=== PATIENT | male | born 1940 | race Caucasian/White ===

== ENCOUNTER 2022-03-21 15:30 | Inpatient (IN) | payer OTHER, MEDICAID ==
[~2022-03-21] VITALS: Ht 172.7 cm; Wt 73.5 kg
[2022-03-21 15:30] VITALS: BP 97/77
--- NOTE | 2022-03-21 15:31 | NUR ---
Patient BIBA to bed 9.
[2022-03-21] MEDS ORDERED: NACL 0.9% 500 ML IV SCH (15:45)
[2022-03-21] MEDS ORDERED: SODIUM PHOSPHATE 118 ML ENEM RC ONE (15:50)
[2022-03-21 16:29] LABS: BASOPHILS % (AUTO) 0.5 % (0.0-2.0); EOSINOPHILS # (AUTO) 0.1 K/uL (0-0.4); EOSINOPHILS % (AUTO) 6.4 % (0.0-4.0); HEMATOCRIT 36.5 % (36-52); HEMOGLOBIN 12.4 g/dL (12.0-18.0); LYMPHOCYTES # (AUTO) 0.7 K/uL (2.0-11.5); LYMPHOCYTES % (AUTO) 36.5 % (20.5-51.1); MEAN CORPUSCULAR HEMOGLOBIN 32 pg (27-31); MEAN CORPUSCULAR HGB CONC 34 g/dL (33-37); MEAN CORPUSCULAR VOLUME 94.8 fL (80-94); MONOCYTES # (AUTO) 0.2 K/uL (0.8-1.0); MONOCYTES % (AUTO) 9.4 % (1.7-9.3); NEUTROPHILS # (AUTO) 0.9 K/uL (1.8-7.7); NEUTROPHILS % (AUTO) 47.2 % (42.2-75.2); PLATELET COUNT (AUTO) 98 K/uL (140-450); RED BLOOD CELL COUNT(AUTO) 3.85 MIL/uL (4.20-6.10); RED CELL DISTRIBUTION WIDTH 16.5 % (11.6-13.7)
[2022-03-21 16:31] LABS: WHITE BLOOD COUNT (AUTO) 1.9 K/uL (4.8-10.8)
[2022-03-21] MEDS ORDERED: CEFEPIME 2,000 MG in DEXTROSE 5% 100 ML IV ONE (16:40)
[2022-03-21 16:55] LABS: PROTHROMBIN TIME 12.1 secs (10.8-13.4)
[2022-03-21] MEDS ORDERED: CEFEPIME 2,000 MG VIAL IV ONE (16:56)
[2022-03-21 16:58] LABS: ALBUMIN 2.2 g/dL (3.4-5.0); ANION GAP 11.4 (8-16); ASPARTATE AMINOTRANSFERASE 33 U/L (15-37); CARBON DIOXIDE 24.6 mmol/L (21-32); CHLORIDE 110 mmol/L (98-107); CREATININE 0.6 mg/dL (0.6-1.3); GLUCOSE 128 mg/dL (74-106); SODIUM SERUM 142 mmol/L (136-145); UREA NITROGEN, BLOOD 19 mg/dL (7-18)
[2022-03-21] MEDS ORDERED: ACETAMINOPHEN 325 MG TAB PO PRN (17:05)
[2022-03-21] MEDS ORDERED: ONDANSETRON 4 MG/2 ML VIAL IVP PRN (17:05)
[2022-03-21] MEDS ORDERED: MAG SULF 2000 MG/WATER PREMIX 50 ML IV PRN (17:05)
[2022-03-21] MEDS ORDERED: ZOLPIDEM 10 MG TAB PO PRN (17:05)
[2022-03-21] MEDS ORDERED: POTASSIUM CHLORIDE 10 MEQ TABER PO PRN (17:05)
[2022-03-21] MEDS ORDERED: INSULIN LISPRO SLIDING SCALE 100 UNITS/ML VIAL SUBQ PRN (17:05)
[2022-03-21] MEDS ORDERED: DEXTROSE 50% 50 ML SYR IVP PRN (17:05)
[2022-03-21] MEDS ORDERED: DOCUSATE SODIUM 100 MG GELCAP PO PRN (17:05)
[2022-03-21] MEDS ORDERED: LORazepam 2 MG/ML VIAL IVP PRN (17:05)
[2022-03-21] MEDS ORDERED: MORPHINE SULFATE 2 MG/ML SYR IVP PRN (17:05)
[2022-03-21] MEDS ORDERED: NACL 0.9% 1,000 ML IV ONE (17:10)
--- NOTE | 2022-03-21 17:20 | NUR ---
# 14 FR Urinary catheter inserted utilizing sterile technique. Immediate return of 50 ml CLOUDY GRAY urine noted. Urine sample collected and sent to lab. Pt tolerated procedure WELL.
[2022-03-21 17:51] LABS: APPEARANCE,URINE CLOUDY (CLEAR); COLOR,URINE AMBER (YELLOW)
[2022-03-21 17:52] LABS: BILIRUBIN,URINE NEGATIVE (NEGATIVE); BLOOD, URINE TRACE (NEGATIVE); LEUKOCYTE ESTERASE ,URINE 2+ (NEGATIVE); NITRITE, URINE POSITIVE (NEGATIVE); UGLUCOSE NEGATIVE (NEGATIVE)
[2022-03-21 17:53] LABS: RBC,URINE 0-5 /HPF (0-5); WBC,URINE TOO MANY TO COUNT /HPF (0-5)
[2022-03-21] MEDS ORDERED: DONE5TAB6 PO (18:22)
[2022-03-21] MEDS ORDERED: MULT-1640 PO (18:32)
[2022-03-21] MEDS ORDERED: ASCO500T95 PO (18:32)
[2022-03-21] MEDS ORDERED: ACET-8386 PO (18:32)
[2022-03-21] MEDS ORDERED: NITR0.4T2 SL (18:32)
[2022-03-21] MEDS ORDERED: DOCU-299 PO (18:32)
[2022-03-21] MEDS ORDERED: CHOL100013 PO (18:32)
--- NOTE | 2022-03-21 19:04 | NUR ---
RAMONEA FROM [facility] C/O ABNORMAL LABS 2.1 WBC (03/16/22) NKA PMH: DEMENTIA, HTN, DM, CHF, HDL, TIA, ANEMIA
--- NOTE | 2022-03-21 19:20 | NUR ---
Pt report given to MCGOVERN RN. Transfer of care at this time.
[2022-03-21 20:00] VITALS: BP 135/78
--- NOTE | 2022-03-21 20:35 | NUR ---
RECEIVED PT FROM ER NURSE FOR CONTINUITY OF CARE,.PT IS ALERT WITH CONFUSION. PIV ON RAC 20 G INTACT AND PATENT. SKIN IS INTACT, VS WNL NO DISTRESS NOTED
[2022-03-21] MEDS: BLOOD GLUCOSE MONITORING 1 DEV DEV FS SCH (21:00)
--- NOTE | 2022-03-21 23:29 | NUR ---
PATIENT ADMITED TO FLOOR ROOM 121 B STABLE VITALS SIGNS IN NORMAL LIMITS REPORTED AND ENDORSE OF CARE GAVE TO STEPHANIE BECERRA
[2022-03-22] MEDS ORDERED: PIPERACILLIN/TAZOBACTAM 3.375 GM VIAL IV ONE ×2 (00:25→05:06)
[2022-03-22] MEDS: PIPERACILLIN/TAZOBACTAM 3.375 GM in DEXTROSE 5% 50 ML IV SCH ×4 (00:51→18:05)
--- NOTE | 2022-03-22 02:00 | NUR ---
PATIENT ASLEEP, NO S/SX OF DISTRESS NOTED
[2022-03-22 04:00] VITALS: BP 133/69
[2022-03-22 05:52] LABS: BASOPHILS % (AUTO) 0.5 % (0.0-2.0); EOSINOPHILS # (AUTO) 0.1 K/uL (0-0.4); EOSINOPHILS % (AUTO) 6.2 % (0.0-4.0); HEMATOCRIT 33.4 % (36-52); HEMOGLOBIN 11.7 g/dL (12.0-18.0); LYMPHOCYTES # (AUTO) 0.8 K/uL (2.0-11.5); LYMPHOCYTES % (AUTO) 40.4 % (20.5-51.1); MEAN CORPUSCULAR HEMOGLOBIN 33 pg (27-31); MEAN CORPUSCULAR HGB CONC 35 g/dL (33-37); MEAN CORPUSCULAR VOLUME 93.5 fL (80-94); MONOCYTES # (AUTO) 0.2 K/uL (0.8-1.0); MONOCYTES % (AUTO) 10.4 % (1.7-9.3); NEUTROPHILS # (AUTO) 0.9 K/uL (1.8-7.7); NEUTROPHILS % (AUTO) 42.5 % (42.2-75.2); PLATELET COUNT (AUTO) 84 K/uL (140-450); RED BLOOD CELL COUNT(AUTO) 3.58 MIL/uL (4.20-6.10); RED CELL DISTRIBUTION WIDTH 16.7 % (11.6-13.7)
[2022-03-22 06:20] LABS: ANION GAP 12.3 (8-16); CARBON DIOXIDE 23.4 mmol/L (21-32); CHLORIDE 111 mmol/L (98-107); CREATININE 0.5 mg/dL (0.6-1.3); GLUCOSE 75 mg/dL (74-106); POTASSIUM 3.7 mmol/L (3.5-5.1); SODIUM SERUM 143 mmol/L (136-145)
[2022-03-22] MEDS: BLOOD GLUCOSE MONITORING 1 DEV DEV FS SCH ×4 (06:28→21:07)
[2022-03-22 06:30] LABS: UREA NITROGEN, BLOOD 17 mg/dL (7-18)
--- NOTE | 2022-03-22 07:20 | NUR ---
ENDORSED PT TO AM NURSE. PT IS STABLE
[2022-03-22 08:00] VITALS: BP 154/75
--- NOTE | 2022-03-22 10:31 | NUR ---
PATIENT HAS BEEN SCREENED AND CATEGORIZED MODERATE NUTRITION RISK. PATIENT WILL BE SEEN WITHIN 3-5 DAYS OF ADMISSION. 03/21/22-03/26/[address] REVIEWED BY CEE BARN[address] RD
[2022-03-22] MEDS: POLYETHYLENE GLYCOL 17 GM/PKT PO SCH (11:05)
[2022-03-22 16:00] VITALS: BP 154/75
[2022-03-22] MEDS: DONEPEZIL 10 MG TAB PO SCH (17:00)
--- NOTE | 2022-03-22 19:30 | NUR ---
RECEIVED PT FROM AM NURSE FOR CONTINUITY OF CARE.PT IS STABLE
[2022-03-22 20:00] VITALS: BP 131/69
[2022-03-22] MEDS: DOCUSATE SODIUM 100 MG GELCAP PO SCH (21:05)
[2022-03-22] MEDS: ASCORBIC ACID 500 MG TAB PO SCH (21:06)
[2022-03-23] MEDS: PIPERACILLIN/TAZOBACTAM 3.375 GM in DEXTROSE 5% 50 ML IV SCH ×4 (00:37→18:27)
--- NOTE | 2022-03-23 01:00 | NUR ---
PATIENT ASLEEP, NO S/SX OF DISTRESS NOTED
[2022-03-23 04:00] VITALS: BP 136/70
[2022-03-23 06:16] LABS: CARBON DIOXIDE 21.7 mmol/L (21-32); CHLORIDE 112 mmol/L (98-107); CREATININE 0.7 mg/dL (0.6-1.3); GLUCOSE 75 mg/dL (74-106); POTASSIUM 3.7 mmol/L (3.5-5.1); SODIUM SERUM 142 mmol/L (136-145); UREA NITROGEN, BLOOD 14 mg/dL (7-18)
[2022-03-23 06:26] LABS: BASOPHILS % (AUTO) 0.5 % (0.0-2.0); EOSINOPHILS # (AUTO) 0.1 K/uL (0-0.4); EOSINOPHILS % (AUTO) 4.3 % (0.0-4.0); HEMATOCRIT 32.8 % (36-52); HEMOGLOBIN 11.4 g/dL (12.0-18.0); LYMPHOCYTES # (AUTO) 0.7 K/uL (2.0-11.5); MEAN CORPUSCULAR HEMOGLOBIN 32 pg (27-31); MEAN CORPUSCULAR HGB CONC 35 g/dL (33-37); MEAN CORPUSCULAR VOLUME 93.8 fL (80-94); MONOCYTES # (AUTO) 0.2 K/uL (0.8-1.0); MONOCYTES % (AUTO) 9.2 % (1.7-9.3); NEUTROPHILS # (AUTO) 1.5 K/uL (1.8-7.7); PLATELET COUNT (AUTO) 89 K/uL (140-450); RED CELL DISTRIBUTION WIDTH 16.2 % (11.6-13.7); WHITE BLOOD COUNT (AUTO) 2.6 K/uL (4.8-10.8)
[2022-03-23] MEDS: BLOOD GLUCOSE MONITORING 1 DEV DEV FS SCH ×4 (06:39→20:19)
--- NOTE | 2022-03-23 07:30 | NUR ---
RECEIVED REPORT FROM NIGHTSHIFT NURSE SALAZAR FOR CONTINUITY OF CARE. PT IS IN STABLE CONDITION, AND CURRENTLY SLEEPING. PT IS A/OX2, AND BREATHING IS EVEN, REGULAR AND UNLABORED ON ROOM AIR. PT IS INCONTINENT OF THE BOWELS AND BLADDER, AND IS BEDBOUND. NO SKIN ISSUES REPORTED. PT SHOWS NO SIGNS OF PAIN OR DISTRESS AT THIS TIME.
[2022-03-23 08:00] VITALS: BP 139/72
[2022-03-23] MEDS: POLYETHYLENE GLYCOL 17 GM/PKT PO SCH (09:16)
[2022-03-23] MEDS: DOCUSATE SODIUM 100 MG GELCAP PO SCH ×2 (09:16→20:05)
[2022-03-23] MEDS: ASCORBIC ACID 500 MG TAB PO SCH ×2 (09:16→20:05)
--- NOTE | 2022-03-23 11:35 | NUR ---
PT. WITH LOW ANGELO SCALE AT HIGH RISK, CONTINUE TO FOLLOW PRESSURE INJURY PREVENTION INTERVENTIONS. -POSITIONING: TURN AND REPOSITION PATIENT Q 2H OR SOONER USE PILLOWS TO KEEP BONY PROMINENCES FROM DIRECT CONTACT WITH SURFACES USE REPOSITIONING WEDGES TO PROVIDE 30-DEGREE ANGLE FOR SIDE LYING POSITIONS OFFLOADING OR FOAM DRESSING TO ALL TUBING TO PREVENT MEDICAL DEVICES RELATED PRESSURE INJURY -RE-EVALUATING AND MANAGING INCONTINENCE MONITOR SKIN CONDITION DURING POSITION CHANGE DO NOT MASSAGE REDNESS, BONY PROMINENCES FREQUENT SEAN-CARE AND PROVIDE BARRIER CREAMS PRN IF SOILING MOISTURE CONTROL BY OFFER BED MCNALLY/URINAL /ABSORBENT PAD TO WICK AND HOLD MOISTURE KEEP SKIN DRY AND PROTECT FROM FRICTION -MANAGE FRICTION/SHEAR/MOBILITY KEEP HOB AT THE LOWEST LEVEL OF ELEVATION NO MORE THAN 30 DEGREE UNLESS OTHERWISE CONTRAINDICATED USE LIFT SHEET OR TRANSFER DEVICE TO MOVE PATIENT AND PREVENT LATERAL SHEER. PROTECT HEELS, ELBOWS BONY PROMINENCES WITH SKIN BERRIES OR FOAM DRESSING IF EXPOSED TO FRICTION OFFLOAD BILATERAL HEELS BY PLACING PILLOWS UNDER CALVES AT ALL TIMES, UNLESS OTHERWISE CONTRAINDICATED -PRESSURE REDISTRIBUTION SURFACE THERAPY QUEENIE ISOFLEX MATTRESS -NUTRITION: PLEASE FOLLOW RD RECOMMENDATIONS AND OFFER NUTRITION SUPPLEMENTS IF ORDERED. PLEASE CONTACT WOUND CARE NURSE FOR ANY QUESTION AND CHANGE OF WOUND CONDITION.
[2022-03-23 16:00] VITALS: BP 137/68
[2022-03-23] MEDS: DONEPEZIL 10 MG TAB PO SCH (18:30)
--- NOTE | 2022-03-23 19:44 | NUR ---
ENDORSED PT TO NIGHTSHIFT NURSE KIANA FOR CONTINUITY OF CARE. PT IN STABLE CONDITION.
--- NOTE | 2022-03-23 19:45 | NUR ---
RECEIVED REPORT FROM DAY SHIFT NURSE WILLIE FOR CONTINUITY OF CARE. PATIENT IS A&O X1-2. PATIENT IS ON ROOM AIR; BREATHING IS NORMAL WITH SYMMETRICAL RISE AND FALL OF CHEST. IV IS A 22G RFA, RUNNING MAGNESIUM IVPB. PATIENT IS AWAKE, SITTING IN HIGH-FOWLERS POSITION. PATIENT'S HANDS ARE SEVERALLY CONTRACTED AND NEEDS TO BE HAND FED AND GIVEN PILLS INTO HIS MOUTH. PATIENT IS PRIMARILY BULGARIAN SPEAKING. BED IS IN LOWEST POSITION, WHEELS LOCKED, CALL LIGHT IN PLACE. WILL CONTINUE TO OBSERVE PATIENT.
[2022-03-23 20:00] VITALS: BP 137/86
--- NOTE | 2022-03-23 20:23 | NUR ---
PATIENT RECEIVED 2100 MEDICATIONS. MEDICATIONS WERE PLACED INTO PATIENT'S MOUTH VIA HOLDING CUP UP TO PATIENT'S MOUTH WITH ONE PILL AT A TIME INSIDE. PATIENT WAS THEN GIVEN WATER TO HELP SWALLOW. PATIENT WAS ABLE TO SWALLOW MEDICATION SUCCESSFULLY WITHOUT ANY DIFFICULTY. MAGNESIUM IVPB WAS STILL RUNNING. WILL CONTINUE TO OBSERVE PATIENT.
--- NOTE | 2022-03-23 20:23 | NUR ---
BS WAS OBTAINED. BS WAS 119, NO INSULIN COVERAGE NEEDED.
--- NOTE | 2022-03-23 22:30 | NUR ---
LOOKED IN ON PATIENT. PATIENT WAS SLEEPING IN SEMI-FOWLERS POSITION. BREATHING WAS NORMAL WITH SYMMETRICAL RISE AND FALL OF CHEST. NO IV FLUIDS RUNNING AT THIS TIME. BED IS IN LOWEST POSITION, WHEELS LOCKED AND CALL LIGHT IN PLACE. WILL CONTINUE TO OBSERVE PATIENT.
[2022-03-24] MEDS: PIPERACILLIN/TAZOBACTAM 3.375 GM in DEXTROSE 5% 50 ML IV SCH ×4 (00:08→17:14)
--- NOTE | 2022-03-24 00:10 | NUR ---
ADMINISTERED 0000 IVPB TO PATIENT. ADMINISTRATION WAS SUCCESSFUL WITHOUT ANY ISSUES. PATIENT WAS SLEEPING IN SEMI-FOWLERS POSITION. BREATHING WAS NORMAL WITH SYMMETRICAL RISE AND FALL OF CHEST. WILL CONTINUE TO OBSERVE PATIENT.
--- NOTE | 2022-03-24 02:18 | NUR ---
CALLED [facility] AND OBTAINED PATIENT'S VACCINE HISTORY FOR PNA AND FLU. PATIENT RECEIVED ONE PNA VACCINE ON 03/04/2021; AND RECEIVED THE INFLUENZA VACCINE FOR CURRENT FLU SEASON ON 02/01/2022 (PER KAYLA @ [facility]).
--- NOTE | 2022-03-24 02:30 | NUR ---
LOOKED IN ON PATIENT. PATIENT WAS SLEEPING, LYING IN SEMI-FOWLERS POSITION. BREATHING WAS NORMAL WITH SYMMETRICAL RISE AND FALL OF CHEST. WILL CONTINUE TO OBSERVE PATIENT.
[2022-03-24 04:00] VITALS: BP 124/69
[2022-03-24 05:46] LABS: BASOPHILS % (AUTO) 0.5 % (0.0-2.0); EOSINOPHILS # (AUTO) 0.2 K/uL (0-0.4); HEMOGLOBIN 11.1 g/dL (12.0-18.0); LYMPHOCYTES # (AUTO) 0.9 K/uL (2.0-11.5); LYMPHOCYTES % (AUTO) 36.4 % (20.5-51.1); MEAN CORPUSCULAR HEMOGLOBIN 32 pg (27-31); MEAN CORPUSCULAR HGB CONC 35 g/dL (33-37); MEAN CORPUSCULAR VOLUME 93.6 fL (80-94); MONOCYTES # (AUTO) 0.2 K/uL (0.8-1.0); MONOCYTES % (AUTO) 10.3 % (1.7-9.3); NEUTROPHILS % (AUTO) 43.8 % (42.2-75.2); PLATELET COUNT (AUTO) 80 K/uL (140-450); RED BLOOD CELL COUNT(AUTO) 3.42 MIL/uL (4.20-6.10); RED CELL DISTRIBUTION WIDTH 16.4 % (11.6-13.7); WHITE BLOOD COUNT (AUTO) 2.4 K/uL (4.8-10.8)
--- NOTE | 2022-03-24 06:06 | NUR ---
ADMINISTERED ZOSYN TO PATIENT. PATIENT TOLERATED MEDICATION WELL. WILL CONTINUE TO OBSERVE PATIENT.
[2022-03-24 06:16] LABS: ANION GAP 13.2 (8-16); CARBON DIOXIDE 20.4 mmol/L (21-32); CHLORIDE 109 mmol/L (98-107); CREATININE 0.7 mg/dL (0.6-1.3); GLUCOSE 70 mg/dL (74-106); POTASSIUM 3.6 mmol/L (3.5-5.1); SODIUM SERUM 139 mmol/L (136-145); UREA NITROGEN, BLOOD 13 mg/dL (7-18)
--- NOTE | 2022-03-24 07:30 | NUR ---
ENDORSED TO DAY SHIFT NURSE DULCE FOR CONTINUITY OF CARE. PATIENT IS STABLE.
[2022-03-24] MEDS: BLOOD GLUCOSE MONITORING 1 DEV DEV FS SCH ×4 (07:55→20:17)
--- NOTE | 2022-03-24 08:00 | NUR ---
OBTAINED PATIENT'S BS; BS WAS 74. GAVE PATIENT A CUP OF ORANGE JUICE. PATIENT TOLERATED WELL. HAVE ENDORSED CONTINUITY OF CARE TO DAY SHIFT NURSE DULCE.
[2022-03-24] MEDS: ASCORBIC ACID 500 MG TAB PO SCH ×3 (09:00→20:09)
[2022-03-24] MEDS: DOCUSATE SODIUM 100 MG GELCAP PO SCH ×3 (09:00→20:09)
[2022-03-24] MEDS: POLYETHYLENE GLYCOL 17 GM/PKT PO SCH ×2 (09:00→09:42)
--- NOTE | 2022-03-24 11:00 | NUR ---
DR. TREVIZO AWARE THAT PT.HAS NO IV SITE, SHE STATED SHE HAS DC'D THE PT. AND NO NEW ORDERS GIVEN.
[2022-03-24] MEDS ORDERED: LEVO-481 PO (11:10)
[2022-03-24 12:00] VITALS: BP 110/60
[2022-03-24] MEDS: DONEPEZIL 10 MG TAB PO SCH (16:22)
--- NOTE | 2022-03-24 17:20 | NUR ---
DC PLANNING: CALLED [facility] SPOKE WITH [employer] FAXED ALL PAPERWORK STATED NO ISO BED CM TO FOLLOW
--- NOTE | 2022-03-24 17:41 | NUR ---
IV INFILTRATED DURING ZOZYN INFUSION. DC'D WITH CANULA INTACT
--- NOTE | 2022-03-24 18:24 | NUR ---
PT. NEEDS MET THIS SHIFT, VSS, NO ACUTE DISTRESS, TURNED Q2 AND KEPT CLEAN. DISCHARGE ORDER BACK TO SNF IS BEING WORKED ON BY CM. NO IV SITE DUE TO NO ACCESS OBTAINED PERIPHERALLY, MD AWARE. PT. FAMILY AT BEDSIDE TO VISIT, CALL LIGHT IN REACH.
--- NOTE | 2022-03-24 19:30 | NUR ---
RECEIVED REPORT FROM DAY SHIFT NURSE DULCE FOR CONTINUITY OF CARE. PATIENT IS A&O X4. PATIENT IS ON ROOM AIR, BREATHING IS NORMAL WITH SYMMETRICAL RISE AND FALL OF CHEST. PATIENT'S IV BECAME INFILTRATED EARLIER IN THE DAY AND NO NEW IV WAS ABLE TO BE PUT IN. PER DAY SHIFT NURSE, DR TREVIZO WAS MADE AWARE. PATIENT CURRENTLY HAS NO IV SITE. PATIENT'S HANDS ARE SEVERELY CONTRACTED, AND PATIENT WAS FED HIS DINNER BY FAMILY MEMBER, EATING 50%. PATIENT IS AWAKE, SITTING IN SEMI-FOWLERS POSITION IN BED. INTRODUCED MYSELF TO PATIENT, PATIENT SEEMED PLEASANT AND GREETED ME. BED IS IN LOWEST POSITION WITH WHEELS LOCKED AND CALL LIGHT IN REACH. WILL CONTINUE TO OBSERVE PATIENT.
[2022-03-24 20:00] VITALS: BP 140/71
--- NOTE | 2022-03-24 20:18 | NUR ---
ADMINISTERED 2100 MEDICATIONS. PATIENT TOLERATED MEDICATIONS WELL, SWALLOWING THEM WITHOUT ANY DIFFICULTY. OBTAINED PATIENT'S BS; BS WAS 102, NO INSULIN COVERAGE WAS NEEDED. PATIENT IS SITTING IN SEMI-FOWLERS POSITION. BREATHING IS NORMAL WITH SYMMETRICAL RISE AND FALL OF CHEST. WILL CONTINUE TO OBSERVE PATIENT.
--- NOTE | 2022-03-24 22:30 | NUR ---
LOOKED IN ON PATIENT. PATIENT WAS SLEEPING, LYING IN SEMI-FOWLERS POSITION. BREATHING WAS NORMAL WITH SYMMETRICAL RISE AND FALL OF CHEST. BED IS IN LOWEST POSITION, WHEELS LOCKED AND CALL LIGHT IN PLACE. WILL CONTINUE TO OBSERVE PATIENT.
--- NOTE | 2022-03-25 01:40 | NUR ---
LOOKED IN ON PATIENT. PATIENT WAS SLEEPING, LYING IN SEMI-FOWLERS POSITION. BREATHING WAS NORMAL WITH SYMMETRICAL RISE AND FALL OF CHEST. WILL CONTINUE TO OBSERVE PATIENT.
--- NOTE | 2022-03-25 04:15 | NUR ---
LOOKED IN ON PATIENT. PATIENT WAS AWAKE, SITTING IN SEMI-FOWLERS POSITION. ASKED PATIENT IF HE WAS OKAY, PATIENT STATED, "YES". ASKED PATIENT IF HE NEEDED ANYTHING, PATIENT STATED, "NO"; AND THEN SAID, "THANK YOU." BREATHING WAS NORMAL WITH SYMMETRICAL RISE AND FALL OF CHEST. BED WAS IN LOWEST POSITION WITH WHEELS LOCKED AND CALL LIGHT IN PLACE. WILL CONTINUE TO OBSERVE PATIENT.
--- NOTE | 2022-03-25 05:15 | NUR ---
PATIENT HAD VOIDED AND HAD A BM. PATIENT WAS CHANGED BY DIO PFEIFFER AND MYSELF. PATIENT TOLERATED CHANGING WELL. PATIENT WAS ABLE TO ASSIST BY ROLLING OVER ON COMMAND WITH ASSISTANCE AND HOLDING ON TO RAILING. PATIENT WAS CLEANED AND GIVEN A NEW [employer] DIAPER. BED WAS LOWERED TO LOWEST POSITION UPON COMPLETION OF CHANGING. BED IS NOW IN LOWEST POSITION WITH WHEELS LOCKED AND CALL LIGHT IN PLACE. PATIENT WAS RESTORED TO SEMI-FOWLERS POSITION AND PILLOWS WERE REARRANGED TO REPOSITION PATIENT. WILL CONTINUE TO OBSERVE PATIENT.
[2022-03-25 05:53] LABS: BASOPHILS % (AUTO) 0.7 % (0.0-2.0); EOSINOPHILS # (AUTO) 0.2 K/uL (0-0.4); EOSINOPHILS % (AUTO) 6.6 % (0.0-4.0); HEMOGLOBIN 11.8 g/dL (12.0-18.0); LYMPHOCYTES # (AUTO) 0.7 K/uL (2.0-11.5); LYMPHOCYTES % (AUTO) 25.3 % (20.5-51.1); MEAN CORPUSCULAR HEMOGLOBIN 32 pg (27-31); MEAN CORPUSCULAR HGB CONC 35 g/dL (33-37); MEAN CORPUSCULAR VOLUME 93.3 fL (80-94); MONOCYTES # (AUTO) 0.2 K/uL (0.8-1.0); NEUTROPHILS # (AUTO) 1.6 K/uL (1.8-7.7); NEUTROPHILS % (AUTO) 59.4 % (42.2-75.2); PLATELET COUNT (AUTO) 87 K/uL (140-450); RED BLOOD CELL COUNT(AUTO) 3.64 MIL/uL (4.20-6.10); RED CELL DISTRIBUTION WIDTH 16.3 % (11.6-13.7); WHITE BLOOD COUNT (AUTO) 2.7 K/uL (4.8-10.8)
[2022-03-25] MEDS: PIPERACILLIN/TAZOBACTAM 3.375 GM in DEXTROSE 5% 50 ML IV SCH ×4 (06:00→12:00)
[2022-03-25 06:27] LABS: ANION GAP 10.5 (8-16); CHLORIDE 107 mmol/L (98-107); CREATININE 0.7 mg/dL (0.6-1.3); GLUCOSE 111 mg/dL (74-106); POTASSIUM 3.5 mmol/L (3.5-5.1); SODIUM SERUM 136 mmol/L (136-145); UREA NITROGEN, BLOOD 18 mg/dL (7-18)
[2022-03-25] MEDS: BLOOD GLUCOSE MONITORING 1 DEV DEV FS SCH ×2 (06:32→11:40)
--- NOTE | 2022-03-25 06:32 | NUR ---
WENT INTO PATIENT'S ROOM TO OBTAIN BS; BS WAS 102, NO INSULIN COVERAGE WAS NEEDED. PATIENT IS LYING IN BED IN SEMI-FOWLERS POSITION, WHEELS LOCKED CALL LIGHT IN PLACE. BREATHING IS NORMAL WITH SYMMETRICAL RISE AND FALL OF CHEST. WILL CONTINUE TO OBSERVE PATIENT.
--- NOTE | 2022-03-25 07:20 | NUR ---
RECEIVED REPORT FROM INFUSION RN NURSE KIANA FOR CONTINUITY OF CARE. PATIENT IS A&O X4. PATIENT IS ON ROOM AIR, BREATHING IS NORMAL WITH SYMMETRICAL RISE AND FALL OF CHEST. PATIENT CURRENTLY HAS NO IV SITE. PATIENT'S HANDS ARE SEVERELY CONTRACTED. PATIENT IS AWAKE, LAYING IN BED. INTRODUCED MYSELF TO PATIENT, PATIENT SEEMED PLEASANT AND GREETED ME. BED IS IN LOWEST POSITION WITH WHEELS LOCKED AND CALL LIGHT IN REACH. WILL CONTINUE TO MONITOR PATIENT.
--- NOTE | 2022-03-25 07:45 | NUR ---
ENDORSED TO DAY SHIFT NURSE MARISELA FOR CONTINUITY OF CARE. PATIENT IS STABLE.
[2022-03-25 08:00] VITALS: BP 152/76
[2022-03-25] MEDS: POLYETHYLENE GLYCOL 17 GM/PKT PO SCH (09:36)
[2022-03-25] MEDS: ASCORBIC ACID 500 MG TAB PO SCH (09:37)
[2022-03-25] MEDS: DOCUSATE SODIUM 100 MG GELCAP PO SCH (09:37)
== END 2022-03-25 13:36 | DRG 871 ==
LOC: MED 15:30 → MMU 17:00 → MTU 19:17
PROVIDERS: ADMIT Family Medicine; ATTEND Family Medicine
DX: A41.50 Gram-negative sepsis, unspecified (principal); E43 Unspecified severe protein-calorie malnutrition; J18.9 Pneumonia, unspecified organism; N39.0 Urinary tract infection, site not specified; D61.818 Other pancytopenia; R65.20 Severe sepsis without septic shock; E78.00 Pure hypercholesterolemia, unspecified; F03.90 Unspecified dementia, unspecified severity, without behavioral disturbance, psychotic disturbance, mood disturbance, and anxiety; D64.9 Anemia, unspecified; E83.42 Hypomagnesemia; E83.51 Hypocalcemia; Z20.822 Contact with and (suspected) exposure to COVID-19; E87.8 Other disorders of electrolyte and fluid balance, not elsewhere classified; Z68.24 Body mass index [BMI] 24.0-24.9, adult
CPT/HCPCS: 36415; 71045; 74018; 80048; 80053; 81001; 82550; 82553; 82948; 83605; 83735; 83880; 84484; 85025; 85610; 85730; 87040; 87081; 87086; 93005; J0692; J1815; J2543; J3475; J7060; Q0092